=== PATIENT | male | born 1955 | race Caucasian/White ===

== ENCOUNTER 2022-01-26 00:25 | Day surgery (SDC) | payer MEDICARE, SELFPAY ==
[2022-01-12 15:03] VITALS: BMI 33.0
[2022-01-26 07:44] VITALS: BP 146/98; PULSE 77; RESP 20; TEMP 36.4; O2SAT 96; BMI 34.0
[2022-01-26] MEDS: GENTAMICIN 80MG/SOD CHL 50 ML 80 MG/50 ML BAG 100 MG IVPB (07:50)
[2022-01-26] MEDS: LACTATED RINGERS 1,000 ML 150 ML IV CONT (08:07)
[2022-01-26] MEDS: AMPICILLIN 2 GM/NS 100 ML 2 GM/100 ML BAG IVPB (08:32)
--- NOTE | 2022-01-26 08:48 | WPDANESEPPF ---
Anes - Initial Pre Proc Eval Procedure: Operation Date: 01/26/22 09:00 Proposed Procedures p Screening Colonoscopy - Keenan Barraza MD Date/Time: 01/26/22 08:48 Surgeon: Keenan Barraza MD Pre Op Diagnosis: hx of colon polyps Patient Data Age: 66 Gender: M Height: 1.7 m Weight: 98.4 kg Last Vital Signs Temp 97.5 F L 01/26/22 07:44 Pulse 77 01/26/22 07:44 Resp 20 01/26/22 07:44 BP 146/98 H 01/26/22 07:44 Pulse Ox 96 01/26/22 07:44 O2 Del Method Room Air 01/26/22 07:44 Allergies Allergy/AdvReac Type Severity Reaction Status Date / Time No Known Allergies Allergy Unknown Verified 01/26/22 07:43 Home Medications Medication Instructions Recorded Confirmed Type aspirin 325 mg tablet 325 mg PO DAILY 03/26/20 01/26/22 History diazepam 5 mg tablet 5 mg PO BID PRN Anxiety 03/26/20 01/26/22 History albuterol sulfate 90 mcg/actuation 1 puff inhalation Q4H PRN 09/11/21 01/26/22 Rx aerosol inhaler (ProAir HFA) shortness of breath or wheezing #1 device atorvastatin 80 mg tablet 80 mg PO DAILY #30 tabs 10/02/21 01/26/22 Rx famotidine 40 mg tablet 40 mg PO DAILY #90 tabs 11/23/21 01/26/22 Rx fluticasone 250 mcg-salmeterol 50 1 inh inhalation BID #60 ea 11/23/21 01/26/22 Rx mcg/dose blistr powdr for inhalation (Wixela Inhub) peg 3350-electrolytes 236 240 ml PO Q10M #4,000 mL 12/10/21 Rx gram-22.74 gram-6.74 gram-5.86 gram solution (Golytely) Patient hx anesthesia problems: none Family hx anesthesia problems: none Results Review: All pre-operative results and documents have been reviewed as part of the pre-operative evaluation. [facility] [place] Past Medical History Medical History (Updated 11/24/21 @ 13:44 by Abby Wu MD) Alcohol use disorder, mild, abuse Anxiety COPD (chronic obstructive pulmonary disease) Coronary artery disease Gastroesophageal reflux Idiopathic agranulocytosis Marijuana smoker, continuous Mixed hyperlipidemia Prediabetes Tobacco abuse Surgical History Surgical History (Updated 11/23/21 @ 21:59 by Abby Wu MD) History of aortic valve replacement with bioprosthetic valve History of mitral valve replacement with bioprosthetic valve Social History Social History Smoking packs per day: 1 Smoking cigarettes per day: 20.0 Years smoked: 50 Smoking pack-years: 50.00 Smoking status: Current every day smoker Tobacco type: cigarettes Alcohol intake: current Drinks per week: 28 Substance use: current Substance use type: marijuana Other substance usage details: daily Living arrangements: alone Spiritual care concerns: No Anes - Eval Final PreProcedure Day of Procedure 01/26/22 08:48 Patient weight: obese Heart: regular rate and rhythm Lungs: clear to auscultation Airway: Mallampati scale class II Neurological: alert and oriented Last oral intake: >/= 8 hours ASA classification: III Emergent: no Anesthetic plan: proceed Anesthesia type and monitoring: general GIVS and standard monitoring Results Review: All pre-operative results and documents have been reviewed as part of the pre-operative evaluation. Informed Consent: The patient's anesthetic plan and its attendant risks and benefits were discussed with the patient/family/POA. Questions were solicited and answers provided to the satisfaction of the patient/family/POA.
--- NOTE | 2022-01-26 08:50 | PM.IMHP ---
H&P: HPI History of Present Illness Date/Time: 01/26/22 08:50 Chief Complaint: History of colon polyps. Narrative: This is a 66-year-old white male patient presents for screening colonoscopy. Patient has a history of adenomatous colon polyp removed from the colon 2013. Patient's current weight appetite and bowel movements are normal. Patient denies abdominal pain. He has had no bleeding. Family history is noncontributory. He presents today for follow-up colonoscopy. Review of Systems Review of Systems: Review of systems noncontributory. [facility] Past Medical History Medical History (Updated 01/26/22 @ 08:51 by Keenan Barraza MD) Alcohol use disorder, mild, abuse Anxiety COPD (chronic obstructive pulmonary disease) Coronary artery disease Gastroesophageal reflux Idiopathic agranulocytosis Marijuana smoker, continuous Mixed hyperlipidemia Prediabetes Tobacco abuse Surgical History Surgical History (Updated 11/23/21 @ 21:59 by Abby Wu MD) History of aortic valve replacement with bioprosthetic valve History of mitral valve replacement with bioprosthetic valve Social History Social History Smoking packs per day: 1 Smoking cigarettes per day: 20.0 Years smoked: 50 Smoking pack-years: 50.00 Smoking status: Current every day smoker Tobacco type: cigarettes Alcohol intake: current Drinks per week: 28 Substance use: current Substance use type: marijuana Other substance usage details: daily Living arrangements: alone Spiritual care concerns: No Meds Home Medications and Allergies Home Medications Medication Instructions Recorded Confirmed Type aspirin 325 mg tablet 325 mg PO DAILY 03/26/20 01/26/22 History diazepam 5 mg tablet 5 mg PO BID PRN Anxiety 03/26/20 01/26/22 History albuterol sulfate 90 mcg/actuation 1 puff inhalation Q4H PRN 09/11/21 01/26/22 Rx aerosol inhaler (ProAir HFA) shortness of breath or wheezing #1 device atorvastatin 80 mg tablet 80 mg PO DAILY #30 tabs 10/02/21 01/26/22 Rx famotidine 40 mg tablet 40 mg PO DAILY #90 tabs 11/23/21 01/26/22 Rx fluticasone 250 mcg-salmeterol 50 1 inh inhalation BID #60 ea 11/23/21 01/26/22 Rx mcg/dose blistr powdr for inhalation (Wixela Inhub) peg 3350-electrolytes 236 240 ml PO Q10M #4,000 mL 12/10/21 Rx gram-22.74 gram-6.74 gram-5.86 gram solution (Golytely) Allergies Allergy/AdvReac Type Severity Reaction Status Date / Time No Known Allergies Allergy Unknown Verified 01/26/22 07:43 Vital Signs Vital Signs - 24 hr 01/26/22 07:44 Temperature 97.5 F L Pulse Rate 77 Respiratory Rate 20 Blood Pressure 146/98 H Pulse Oximetry 96 Oxygen Delivery Room Air Exam Narrative: Physical exam reveals patient to be alert. Vital signs stable. HEENT exam is unremarkable. Patient is anicteric. Lungs are clear to auscultation and percussion. Heart is without murmur or extra sounds. Abdominal exam bowel sounds are present soft nontender with no organomegaly. Digital external rectal exam is normal. Assessment and Plan Assessment and plan (1) History of colon polyps: Code(s): Z86.010 - Personal history of colonic polyps Status: Acute Assessment and Plan: Patient has a prior history of adenomatous colon polyp. Plan is for screening colonoscopy at this time. Further recommendations will be given after endoscopy.
[2022-01-26] MEDS: SIMETHICONE ORAL SUSPENSION 20 MG/0.3 ML 30 ML BOTTLE 0.6 ML IRRIGATION (09:39)
[2022-01-26 10:07] VITALS: BP 148/89; PULSE 72; RESP 24; O2SAT 96
[2022-01-26 10:17] VITALS: BP 136/89; PULSE 76; RESP 22; O2SAT 100
[2022-01-26 10:27] VITALS: BP 112/76; PULSE 72; RESP 18; O2SAT 100
== END 2022-01-26 10:29 | disposition home or self-care (01) ==
PROVIDERS: PCP Family Medicine; Visit Provider Internal Medicine Gastroenterology
PROC: 0DJD8ZZ Inspection of Lower Intestinal Tract, Via Natural or Artificial Opening Endoscopic (ICD-10-PCS; CPT 45378; principal; 2022-01-26 09:00)
DX: Z12.11 Encounter for screening for malignant neoplasm of colon (principal); D12.2 Benign neoplasm of ascending colon; K63.5 Polyp of colon; K64.8 Other hemorrhoids; K57.30 Diverticulosis of large intestine without perforation or abscess without bleeding; F41.9 Anxiety disorder, unspecified; J44.9 Chronic obstructive pulmonary disease, unspecified; I25.10 Atherosclerotic heart disease of native coronary artery without angina pectoris; R73.03 Prediabetes; K21.9 Gastro-esophageal reflux disease without esophagitis; E78.2 Mixed hyperlipidemia; D70.8 Other neutropenia; Z95.2 Presence of prosthetic heart valve; F12.90 Cannabis use, unspecified, uncomplicated
CPT/HCPCS: 45385; 88305; J0290; J1580; J2704; J7120

== ENCOUNTER 2023-05-02 14:33 | Outpatient (CLI) | payer MEDICARE, SELFPAY ==
--- NOTE | ~2023-05-02 | CT_ITS ---
EXAMINATION:CT lung screening DATE: 05/02/2023 14:51 INDICATION: Tobacco use. Current smoker with 50 pack year history. TECHNIQUE: Computed tomography (CT) of the chest was performed without intravenous contrast. Automate d exposure control and iterative reconstruction technique were employed. The dose-length product (DLP ) was 211.29 mGy-cm. COMPARISON: None. FINDINGS: There is mild scarring at the lung apices. There are two 4 mm nodules in right upper lobe. There is moderate emphysema. No pleural effusion. The heart size is normal. There are coronary artery calcifications. There are changes of aortic valve replacement and coronary artery bypass grafting. T here is ectasia of ascending aorta measuring 4.9 cm. There is moderate thoracic spondylosis. IMPRESSION: 1. Lung-RADS category 2: Benign appearance or behavior. Continue annual screening with noncontrast lo w-dose chest CT in 12 months. Reviewed, dictated and finalized at location E. [employer] IMPRESSION: 1. Lung-RADS category 2: Benign appearance or behavior. Continue annual screeni ng with noncontrast low-dose chest CT in 12 months.
== END 2023-05-02 14:34 | disposition home or self-care (01) ==
PROVIDERS: PCP Family Medicine; Visit Provider Family Medicine
DX: F17.210 Nicotine dependence, cigarettes, uncomplicated (principal)
CPT/HCPCS: 71271

== ENCOUNTER 2024-03-12 01:35 | Day surgery (SDC) | payer MEDICARE, SELFPAY ==
[2024-02-21 09:32] VITALS: BMI 31.4
[2024-03-12 10:00] VITALS: BP 140/89; PULSE 66; RESP 20; TEMP 36.2; O2SAT 96
[2024-03-12] MEDS: LACTATED RINGERS 1,000 ML 150 ML IV CONT (10:27)
--- NOTE | 2024-03-12 10:29 | WPDANESEPPF ---
Anes - Initial Pre Proc Eval Procedure: Operation Date: 03/12/24 10:30 Proposed Procedures p Screening Colonoscopy - Gera Dallas MD Date/Time: 03/12/24 10:29 Surgeon: Gera Dallas MD Pre Op Diagnosis: hx colon polyps Patient Data Age: 68 Gender: M Height: 1.7 m Weight: 92.9 kg Last Vital Signs Temp 36.2 C L 03/12/24 10:00 Pulse 66 03/12/24 10:00 Resp 20 03/12/24 10:00 BP 140/89 03/12/24 10:00 Pulse Ox 96 03/12/24 10:00 O2 Del Method Room Air 03/12/24 10:00 Allergies Allergy/AdvReac Type Severity Reaction Status Date / Time No Known Allergies Allergy Unknown Verified 03/12/24 10:08 Home Medications Medication Instructions Recorded Confirmed Type aspirin 325 mg tablet 325 mg PO DAILY 03/26/20 03/12/24 History fluticasone 500 mcg-salmeterol 50 1 inh inhalation Q12H #60 ea 06/15/22 03/12/24 Rx mcg/dose blistr powdr for inhalation (Wixela Inhub) fluticasone propionate 50 1 - 2 spray intranasal BID #16 mL 07/05/22 03/12/24 Rx mcg/actuation nasal spray,suspension (Flonase Allergy Relief) omeprazole 20 mg capsule,delayed 20 mg PO BID 07/21/22 03/12/24 History release azelastine 137 mcg (0.1 %) nasal 1 spray intranasal Q12H #30 mL 08/25/22 03/12/24 Rx spray sildenafil (pulm.hypertension) 20 60 mg PO DAILY #60 tabs 12/15/22 03/12/24 Rx mg tablet atorvastatin 80 mg tablet 80 mg PO DAILY #90 tabs 05/31/23 03/12/24 Rx metformin 500 mg tablet 500 mg PO BID #180 tabs 07/27/23 03/12/24 Rx albuterol sulfate 90 mcg/actuation 1 puff inhalation Q4H PRN 08/19/23 03/12/24 Rx aerosol inhaler (ProAir HFA) shortness of breath or wheezing #1 device amlodipine 5 mg tablet 5 mg PO DAILY 02/21/24 03/12/24 History Patient hx anesthesia problems: none Family hx anesthesia problems: none Results Review: All pre-operative results and documents have been reviewed as part of the pre-operative evaluation. [facility] Past Medical History Medical History Alcohol use disorder, mild, abuse Anxiety COPD (chronic obstructive pulmonary disease) Coronary artery disease Erectile dysfunction Gastroesophageal reflux Idiopathic agranulocytosis Marijuana smoker, continuous Mixed hyperlipidemia Tobacco abuse Surgical History Surgical History History of aortic valve replacement with bioprosthetic valve History of mitral valve replacement with bioprosthetic valve Social History Social History Smoking packs per day: 1 Smoking cigarettes per day: 20.0 Years smoked: 50 Smoking pack-years: 50.00 Smoking status: Current every day smoker Tobacco type: cigarettes Alcohol intake: current Drinks per week: 20 Alcohol use details: beer Substance use: current Substance use type: marijuana Other substance usage details: daily Lack of Transportation: No Lack of Food: Never True Current Housing: I Have Housing Concerned About Future Housing: No Difficulty Paying Gas/Electric Bills: No Difficulty Paying for Meds: No Currently Unemployed: No Education: High School Diploma/GED Difficulty w/ Childcare or Family Care: No Living arrangements: with family Gender identity (if verbalized by the patient): Male Sexual Orientation (if Verbalized by the Patient): Straight or Heterosexual Spiritual care concerns: No Agree to blood products: Yes Anes - Eval Final PreProcedure Day of Procedure 03/12/24 10:29 Patient weight: obese Heart: regular rate and rhythm Lungs: clear to auscultation Airway: Mallampati scale class II Neurological: alert and oriented Last oral intake: >/= 8 hours ASA classification: IV Emergent: no Anesthesia type and monitoring: general GIVS and standard monitoring Results Review: All pre-operative results and documents have been reviewed as part of the pre-operative evaluation. Informed Consent: The patient's anesthetic plan and its attendant risks and benefits were discussed with the patient/family/POA. Questions were solicited and answers provided to the satisfaction of the patient/family/POA.
[2024-03-12 10:35] LABS: Glucose Point of Care 109 mg/dl (65-105)
--- NOTE | 2024-03-12 11:25 | PM.IMHP ---
H&P: HPI History of Present Illness Date/Time: 03/12/24 11:25 Chief Complaint: History of colonic polyps. Narrative: The patient's last colonoscopy was in 2021, finding multiple adenomas. He is here for surveillance colonoscopy. Review of Systems Review of Systems: All systems reviewed & are unremarkable except as noted in HPI and below PMFSH Past Medical History Medical History Alcohol use disorder, mild, abuse Anxiety COPD (chronic obstructive pulmonary disease) Coronary artery disease Erectile dysfunction Gastroesophageal reflux Idiopathic agranulocytosis Marijuana smoker, continuous Mixed hyperlipidemia Tobacco abuse Surgical History Surgical History History of aortic valve replacement with bioprosthetic valve History of mitral valve replacement with bioprosthetic valve Social History Social History Smoking packs per day: 1 Smoking cigarettes per day: 20.0 Years smoked: 50 Smoking pack-years: 50.00 Smoking status: Current every day smoker Tobacco type: cigarettes Alcohol intake: current Drinks per week: 20 Alcohol use details: beer Substance use: current Substance use type: marijuana Other substance usage details: daily Lack of Transportation: No Lack of Food: Never True Current Housing: I Have Housing Concerned About Future Housing: No Difficulty Paying Gas/Electric Bills: No Difficulty Paying for Meds: No Currently Unemployed: No Education: High School Diploma/GED Difficulty w/ Childcare or Family Care: No Living arrangements: with family Gender identity (if verbalized by the patient): Male Sexual Orientation (if Verbalized by the Patient): Straight or Heterosexual Spiritual care concerns: No Agree to blood products: Yes Meds Home Medications and Allergies Home Medications Medication Instructions Recorded Confirmed Type aspirin 325 mg tablet 325 mg PO DAILY 03/26/20 03/12/24 History fluticasone 500 mcg-salmeterol 50 1 inh inhalation Q12H #60 ea 06/15/22 03/12/24 Rx mcg/dose blistr powdr for inhalation (Wixela Inhub) fluticasone propionate 50 1 - 2 spray intranasal BID #16 mL 07/05/22 03/12/24 Rx mcg/actuation nasal spray,suspension (Flonase Allergy Relief) omeprazole 20 mg capsule,delayed 20 mg PO BID 07/21/22 03/12/24 History release azelastine 137 mcg (0.1 %) nasal 1 spray intranasal Q12H #30 mL 08/25/22 03/12/24 Rx spray sildenafil (pulm.hypertension) 20 60 mg PO DAILY #60 tabs 12/15/22 03/12/24 Rx mg tablet atorvastatin 80 mg tablet 80 mg PO DAILY #90 tabs 05/31/23 03/12/24 Rx metformin 500 mg tablet 500 mg PO BID #180 tabs 07/27/23 03/12/24 Rx albuterol sulfate 90 mcg/actuation 1 puff inhalation Q4H PRN 08/19/23 03/12/24 Rx aerosol inhaler (ProAir HFA) shortness of breath or wheezing #1 device amlodipine 5 mg tablet 5 mg PO DAILY 02/21/24 03/12/24 History Allergies Allergy/AdvReac Type Severity Reaction Status Date / Time No Known Allergies Allergy Unknown Verified 03/12/24 10:08 Vital Signs Vital Signs - 24 hr 03/12/24 10:00 Temperature 97.1 F L Pulse Rate 66 Respiratory Rate 20 Blood Pressure 140/89 Pulse Oximetry 96 Oxygen Delivery Room Air Assessment and Plan Assessment and plan (1) History of colon polyps: Code(s): Z86.010 - Personal history of colon polyps Status: Acute Plan Patient deemed a good candidate for colonoscopy: Will proceed.
[2024-03-12 11:58] VITALS: BP 125/83; PULSE 77; RESP 22; O2SAT 96
--- NOTE | 2024-03-12 12:05 | PM.IMHP ---
H&P: HPI History of Present Illness Date/Time: 03/12/24 12:05 Chief Complaint: Screening colonoscopy. Patient has a history of colonic polyps. Narrative: Last colonoscopy 3 years ago. Review of Systems Review of Systems: All systems reviewed & are unremarkable except as noted in HPI and below PMFSH Past Medical History Medical History Alcohol use disorder, mild, abuse Anxiety COPD (chronic obstructive pulmonary disease) Coronary artery disease Erectile dysfunction Gastroesophageal reflux Idiopathic agranulocytosis Marijuana smoker, continuous Mixed hyperlipidemia Tobacco abuse Surgical History Surgical History History of aortic valve replacement with bioprosthetic valve History of mitral valve replacement with bioprosthetic valve Social History Social History Smoking packs per day: 1 Smoking cigarettes per day: 20.0 Years smoked: 50 Smoking pack-years: 50.00 Smoking status: Current every day smoker Tobacco type: cigarettes Alcohol intake: current Drinks per week: 20 Alcohol use details: beer Substance use: current Substance use type: marijuana Other substance usage details: daily Lack of Transportation: No Lack of Food: Never True Current Housing: I Have Housing Concerned About Future Housing: No Difficulty Paying Gas/Electric Bills: No Difficulty Paying for Meds: No Currently Unemployed: No Education: High School Diploma/GED Difficulty w/ Childcare or Family Care: No Living arrangements: with family Gender identity (if verbalized by the patient): Male Sexual Orientation (if Verbalized by the Patient): Straight or Heterosexual Spiritual care concerns: No Agree to blood products: Yes Meds Home Medications and Allergies Home Medications Medication Instructions Recorded Confirmed Type aspirin 325 mg tablet 325 mg PO DAILY 03/26/20 03/12/24 History fluticasone 500 mcg-salmeterol 50 1 inh inhalation Q12H #60 ea 06/15/22 03/12/24 Rx mcg/dose blistr powdr for inhalation (Wixela Inhub) fluticasone propionate 50 1 - 2 spray intranasal BID #16 mL 07/05/22 03/12/24 Rx mcg/actuation nasal spray,suspension (Flonase Allergy Relief) omeprazole 20 mg capsule,delayed 20 mg PO BID 07/21/22 03/12/24 History release azelastine 137 mcg (0.1 %) nasal 1 spray intranasal Q12H #30 mL 08/25/22 03/12/24 Rx spray sildenafil (pulm.hypertension) 20 60 mg PO DAILY #60 tabs 12/15/22 03/12/24 Rx mg tablet atorvastatin 80 mg tablet 80 mg PO DAILY #90 tabs 05/31/23 03/12/24 Rx metformin 500 mg tablet 500 mg PO BID #180 tabs 07/27/23 03/12/24 Rx albuterol sulfate 90 mcg/actuation 1 puff inhalation Q4H PRN 08/19/23 03/12/24 Rx aerosol inhaler (ProAir HFA) shortness of breath or wheezing #1 device amlodipine 5 mg tablet 5 mg PO DAILY 02/21/24 03/12/24 History Allergies Allergy/AdvReac Type Severity Reaction Status Date / Time No Known Allergies Allergy Unknown Verified 03/12/24 10:08 Vital Signs Vital Signs - 24 hr 03/12/24 10:00 03/12/24 11:58 Temperature 97.1 F L Pulse Rate 66 77 Respiratory Rate 20 22 H Blood Pressure 140/89 125/83 Pulse Oximetry 96 96 Oxygen Delivery Room Air Room Air Assessment and Plan Assessment and plan (1) History of colon polyps: Code(s): Z86.010 - Personal history of colon polyps Status: Acute Plan Patient deemed a good candidate for colonoscopy, we will proceed.
[2024-03-12 12:08] VITALS: BP 128/81; PULSE 72; RESP 21; O2SAT 96
[2024-03-12 12:17] VITALS: BP 147/93; PULSE 70; RESP 24; O2SAT 99
== END 2024-03-12 12:20 | disposition home or self-care (01) ==
PROVIDERS: PCP Family Medicine; Referring Provider Internal Medicine Gastroenterology; Visit Provider Internal Medicine Gastroenterology
PROC: 0DJD8ZZ Inspection of Lower Intestinal Tract, Via Natural or Artificial Opening Endoscopic (ICD-10-PCS; CPT 45378; principal; 2024-03-12 10:30)
DX: Z12.11 Encounter for screening for malignant neoplasm of colon (principal); D12.4 Benign neoplasm of descending colon; D12.5 Benign neoplasm of sigmoid colon; D12.8 Benign neoplasm of rectum; K63.5 Polyp of colon; K57.30 Diverticulosis of large intestine without perforation or abscess without bleeding; J44.9 Chronic obstructive pulmonary disease, unspecified; I25.10 Atherosclerotic heart disease of native coronary artery without angina pectoris; E78.2 Mixed hyperlipidemia; F41.9 Anxiety disorder, unspecified; K21.9 Gastro-esophageal reflux disease without esophagitis; F17.210 Nicotine dependence, cigarettes, uncomplicated; Z95.2 Presence of prosthetic heart valve; F12.90 Cannabis use, unspecified, uncomplicated; E66.9 Obesity, unspecified; Z68.32 Body mass index [BMI] 32.0-32.9, adult; Z79.51 Long term (current) use of inhaled steroids; Z79.84 Long term (current) use of oral hypoglycemic drugs
CPT/HCPCS: 45385; 82948; 88305; J7120

== ENCOUNTER 2024-12-25 09:34 | Outpatient (CLI) | payer MEDICARE, SELFPAY ==
--- NOTE | ~2024-12-25 | CT_ITS ---
CT Scan of the Chest without Contrast: Clinical Indication: Lung cancer screening, nicotine dependence Technique: Contiguous sections were acquired throughout the chest without intravenous contrast. Dose reduction technique was used on this scan by utilizing automated exposure control and iterative recon struction technique. The dose-length product (DLP) was 183.01 mGy-cm. COMPARISON: 05/02/2023 Findings: There is no evidence of any significant mediastinal, hilar or axillary lymphadenopathy. Ascending aor ta measures 5.2 cm in diameter. Probable aortic valve replacement present.. There is no evidence of pleural or pericardial effusion. No pulmonary nodule evident. Stable emphysema and interstitial changes, especially at the lung apices . Images through the upper abdomen reveal no abnormalities. Impression: Lung RADS 2: Benign appearance. 12 month follow-up screening CT advised. 5.2 cm ascending aortic aneurysm. Reviewed, dictated and finalized at [facility]. Impression: Lung RADS 2: Benign appearance. 12 month follow-up screening CT advised. 5.2 cm ascending aortic aneurysm.
--- OUTSIDE RECORDS SUMMARY | 2024-12-25 09:45 | XMS_ITS | Clinical Summary ---
Author Organization [facility] Address [address] [facility] [place] [address] Care Team Providers Care Metal Mine Inspector Name Role Phone Abby Wu MD Primary Care Provider [phone] Allergies No known active allergies Medications aspirin 325 mg tablet Take 1 tablet (325 mg total) by mouth as needed 7 Active omeprazole (PriLOSEC) 20 mg capsule as needed 4 Active atorvastatin (LIPITOR) 40 mg tablet Take 1 tablet (40 mg total) by mouth daily 90 tablet 3 0 Active albuterol HFA (PROVENTIL HFA,VENTOLIN HFA,PROAIR HFA) 90 mcg/actuation inhaler USE 1 PUFF BY MOUTH EVERY 4 HOURS NEEDED FOR SHORTNESS OF BREATH OR WHEEZING 0 Active Breztri Aerosphere 160-9-4.8 mcg/actuation inhaler Inhale 2 puffs 2 (two) times a day 4 Active metFORMIN (GLUCOPHAGE) 500 mg tablet 4 Active lisinopriL (PRINIVIL,ZESTR IL) 10 mg tablet Take 1 tablet (10 mg total) by mouth daily 30 tablet 11 5 10/26/19 26 Active Active Problems Problem Noted Date Diagnosed Date H/O aortic valve replacement 11/09/2024 Assessment & Plan (11/09/2024 11:56 AM CDT): Status post SAVR, 27 mm magna ease in 2013 TTE in 2023, mean gradient 8 mm Hg, no significant AR Echo repeated today, results pending Aneurysm of ascending aorta without rupture 10/28 Assessment & Plan (11/09/2024 11:56 AM CDT): 5.2 cm per CTA chest in September 2024 Overall stable, noted to be 5.3 cm on TTE in 2023 Continue surveillance, discussed with patient importance of blood pressure control, tobacco cessation Essential hypertension 11/09/2024 Assessment & Plan (11/09/2024 11:56 AM CDT): Overall well-controlled, continue lisinopril 10 mg daily Repeat BMP ordered to evaluate kidney function Coronary artery disease invo lving akutan coronary artery of akutan heart without angina pectoris 06/30/2021 Assessment & Plan (11/09/2024 11:56 AM CDT): CABG x1 (BRUCE-LAD) in 2013 Denies anginal symptoms Continue aspirin, statin Tobacco use 06/30/2021 Assessment & Plan (11/09/2024 11:56 AM CDT): Advised complete cessation Obesity 06/30/2021 Hyperlipidemia 12/26/2014 Assessment & Plan (11/09/2024 11:56 AM CDT): LDL of 58 per blood work in 2023 Continue atorvastatin 40 Aortic valve stenosis 03/29/2014 Encounters Date Type Department Care Team Description 11/14/2024 Results Follow-Up [facility] [address] [place] [address] Carlos Bell MD Transthoracic Echo (TTE) Complete W Doppler/CF 11/09/2024 10:30 AM CDT Office Visit [facility] Cardiology [address] [place] [address] Medical Office Building [address] [place] [address] Mindy Barroso NP Coronary artery disease involving akutan coronary artery of akutan heart without angina pectoris (Primary Dx); Essential hypertension; H/O aortic valve replacement; Aneurysm of ascending aorta without rupture; Mixed hyperlipidemia; Tobacco use 11/09/2024 9:30 AM CDT Ancillary Procedure [facility] [address] [place] [address] [address] [place] [address] Nonrheumatic aortic valve stenosis; Coronary artery disease involving akutan heart, unspecified vessel or lesion type, unspecified whether angina present 11/09/2024 Telephone [facility] Cardiology [address] [facility] Advanced Medicine 8th [place] [address] [place] [address] Carlos Bell MD 10/31/2024 Telephone [facility] Cardiology [facility] 8th [place] [address] [place] [address] Carlos Bell MD 10/24/[address] [place] [address] Garo Farley Nitesh 10/24/2024 Orders Only [address] [place] [id number] Carlos Bell MD Nonrheumatic aortic valve stenosis (Primary Dx); Coronary artery disease involving akutan heart, unspecified vessel or lesion type, unspecified whether angina present 10/24/2024 Results Follow-Up [facility] [address] [place] [address] Carlos Bell MD CTA Chest W Contrast 10/23/2024 8:24 AM CDT - 10/23/2024 11:59 PM CDT Hospital Encounter [facility] [address] [place] [address] Nonrheumatic aortic valve stenosis Discharge Disposition: Discharge to home or self care from Last 3 Months Family History Medical History Relation Name Comments Cancer Father Family history of cancer - (Added by TW Conv) Coronary artery disease Father Fami ly history of coronary artery disease - (Added by TW Conv) Heart attack Father Family history of heart attack - (Added by TW Conv) Hypertension Father Family history of hypertension - (Added by TW Conv) Lung disease Father Family history of lung disease - (Added by TW Conv) Relation Name Status Comments Father Social History Tobacco Use Types Packs/Day Years Used Date Smoking Tobacco: Every Day Smokeless Tobacco: Never Tobacco Cessation:Ready to Q uit: Not Asked; Counseling Given: Not Answered Comments:5 cigs daily Alcohol Use Standard Drinks/Week Comments Yes 0 (1 standard drink = 0.6 oz pur e alcohol) Sex and Gender Information Value Date Recorded Sex Assigned at Not on file 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 [employer] Gender Identity Not on file Sexual Orientation Not on file Obstetrics History Last Filed Vital Signs Vital Sign Reading Time Taken Comments Blood Pressure 140/88 11/09/2024 10:36 AM CDT Pulse 78 11/09/2024 10:36 AM CDT Temperature 36.3 C (97.3 F) 06/13/2020 10:27 AM LIBRARY CLERK [employer] Respiratory Rate - - Oxygen Saturation 96% 11/09/2024 10:36 AM CDT Inhaled Oxygen Concentration - - Weight 90 kg (198 lb 6.4 oz) 11/09/2024 10:36 AM CDT Height 170.2 cm (5' 7.01) 11/09/2024 10:36 AM C DT Body Mass Index 31.06 11/09/2024 10:36 AM CDT Plan of Treatment Health Maintenance Due Date Last Done Comments Colon Cancer Screening-Colonoscopy 1955 Depression Screening 1955 Fall Risk Assessment 1955 Hepatitis C Screening 1955 Prostate Cancer Screening-PSA 1955 Hepatitis B Screening 1973 Pneumococcal vaccine 65+ (1 of 2 - PCV) 1974 Zoster Vaccine (1 of 2) 2005 Abdominal Aortic Aneurysm (AAA) Screen 2020 Well Visit 65+ 2020 Influenza Vaccine (#1) 2025 DTaP/Tdap/Td Vaccine (2 - Td or Tdap) 07/13/2027 Procedures Procedure Name Priority Date/Time Associated Diagnosis Comments TRANSTHORACIC ECHO (TTE) COMPLETE W DOPPLER/CF W CONTRAST Routine 11/09/2024 10:19 AM CDT Nonrheumatic aortic valve stenosis Coronary artery disease involving akutan heart, unspecified vessel or lesion type, unspecified whether angina present CTA CHEST W CONTRAST Schedule Routine, Read Routine (OP Routine) 10/23/2024 8:42 AM CDT Nonrheumatic aortic valve stenosis POC ISTAT Routine 10/23/2024 8:36 AM CDT from Last 3 Months Results * TRANSTHORACIC ECHO (TTE) COMPLETE W DOPPLER/CF W CONTRAST (11/09/2024 10:19 AM CDT) EF Mod BP 67 % CONS SCIMAGE Anatomical Region Laterality Modality Ultrasound 11/09/2024 9:37 AM CDT Narrative 11/09/2024 1:59 PM CDT [facility] Cardiac Diagnostic Lab [address] , [address] [place] [address] Transthoracic Echocardiographic Report Patient Name: CHELSIE VIZCARRA D : 1955 (69y 7m) Gender: M Study Date: 11/09/2024 09:37:12 AM Ht(Inch): 67 Wt(Lb): 207.01 BSA: 2.11 Headlight Adjuster: DELANEY Leal Location: [facility] Order Provider: CARLOS BELL Heart Rate: 81 BMI: 32.42 BP: 101 / 65 Ref Provider: CARLOS BELL PROCEDURES: Echocardiographic Report: Transthoracic complete echo with strain imaging and contrast, 2D, spectral and tissue Doppler, color flow Doppler, M-mode. Additional Procedures: Myocardial strain imaging was performed. Contrast: Contrast Enhancement was Employed: After initial imaging due to sub- optimal quality related to co-morbidity defined by patient's body habitus. 0.4 ml Optison Administered, (2.6 ml wasted). INDICATIONS: I35.0 Nonrheumatic aortic (valve) stenosis and I25.10 Atherosclerotic heart disease of akutan coronary artery without angina pectoris. CONCLUSIONS: 1. Normal left ventricular cavity size based on volume index. Normal LV wall thickness. Normal left ventricular systolic function. The Ejection Fraction (Frances's) is measured at 67 %. The average global longitudinal strain is abnormal. 2. Right ventricular dilatation. Normal right ventricular systolic function. 3. s/p TAVR; A bioprosthetic stent-valve is present in the aortic position. ATTESTATION: I have personally reviewed and interpreted this study without fellow or resident. - DISCLAIMER: The study images and the final report will be retained in the patient chart by the Echo Laboratory for the legally required time period. This chart constitutes the legal record of any testing performed. FINDINGS: Left Ventricle: Normal left ventricular cavity size based on volume index. Normal LV wall thickness. Normal left ventricular systolic function. The Ejection Fraction (Frances's) is measured at 67 %. The average global longitudinal strain is abnormal. The LV global strain is: -12.7 %. Right Ventricle: Right ventricular dilatation. Normal right ventricular systolic function. Left Atrium: The left atrium is normal in size. Right Atrium: Right atrial dilatation. Mitral Valve: Normal mitral valve structure. No mitral regurgitation. No stenosis present. Aortic Valve: Mildly thickened aortic valve leaflets. Mildly restricted aortic cusps. The mean transaortic gradient is 9 mmHg. The aortic valve area by the continuity equation (using VTI) is 2.27 cm2. Aortic valve dimensionless index is 0.44. A bioprosthetic stent-valve is present in the aortic position. Tricuspid Valve: Normal tricuspid valve structure. No tricuspid regurgitation. No tricuspid valve stenosis. Pulmonic Valve: Normal pulmonic valve structure. No pulmonic regurgitation. No pulmonic valve stenosis present. Pericardium: Normal pericardium without pericardial effusion. Aorta: Mild aortic root dilation at sinuses of Valsalva. Dilation of the ascending aorta when indexed. PASP: Normal estimated pulmonary artery systolic pressure. Rhythm: Normal Sinus rhythm was seen during the study. MEASUREMENTS: 2D/MM Value Range Doppler Value Range LVIDd 2D 5.15 cm [ 4.20 - 5.80 ] AV Peak Antwan 2.0 m/s [ 1.0 - 1.7 ] LVIDs 2D 3.28 cm [ 2.50 - 4.00 ] AV Peak PG 16.00 mmHg IVSd 2D 0.97 cm [ 0.60 - 1.00 ] AV Mean PG 9 mmHg LVPWd 2D 0.99 cm [ 0.60 - 1.00 ] AV VTI 41.2 cm LV Thickness Ratio 1.0 LVOT Peak Antwan 0.8 m/s [ 0.7 - 1.1 ] LV FS 2D 36.28 % [ 25.00 - 43.00 ] LVOT Peak PG 2.56 mmHg LV Mass 2D 190.37 g LVOT Mean PG 2 mmHg LV Mass Index 2D 90.22 g/m2 LVOT VTI 18.3 cm RWT 0.38 LVOT Diam 2.55 cm EDV Mod BP 123.17 ml [ 62.00 - 150.00 ] NATACHA VTI 2.27 cm2 LV EDV Index 58.37 ml/m2 LVOT/AV VTI 0.44 - Dimensionless index (DVI) ESV Mod BP 41.29 ml [ 21.00 - 61.00 ] MV E Peak Antwan 0.7 m/s [ 0.6 - 1.3 ] EF Mod BP 67 % [ 52 - 72 ] MV A Peak Antwan 0.8 m/s [ 1.0 - 1.2 ] LV GLS -12.7 % [ -25.0 - -18.0 ] MV E/A 0.9 ratio [ 0.8 - 1.5 ] LA Length 4C 4.47 cm MV Decel Time 199.79 msec [ 104.00 - 258.00 ] LA Length 2C 5.22 cm Med E` Antwan 5.5 cm/sec [ 8.0 - 25.0 ] LA Volume BP 64.29 ml Lat E` Antwan 7.2 cm/sec [ 10.0 - 25.0 ] LA Volume Index 30.47 ml/m2 [ 16.00 - 34.00 ] Average E/E` 11.02 RV Base Dimen 2D 5.3 cm [ 2.5 - 4.2 ] RV S` 6.25 cm/sec TAPSE 1.80 cm [ 1.71 - 5.00 ] TR Peak Antwan 2.3 m/s [ 1.0 - 2.8 ] RA Volume 100.91 ml TR Peak PG 21.2 mmHg RA Volume Index 47.82 ml/m2 PV Peak Antwan 0.9 m/s [ 0.4 - 0.8 ] AoR Diam 2D 4.17 cm [ 3.10 - 3.70 ] PV Peak PG 3.24 mmHg Ao Root Index 1.98 cm/m2 [ 1.00 - 2.00 ] Asc Ao Diam 2D 4.69 cm Asc Ao Index 2.22 cm/m2 Electronically Signed By: Stuart Gibbs MD 11/09/2024 1:58:06 PM CDT Procedure Note Stuart Gibbs MD - 11/09/2024 [facility] Cardiac Diagnostic Lab [address] [facility], [address] [place] [address] Transthoracic Echocardiographic Report Patient Name: CHELSIE VIZCARRA D : 1955 (69y 7m) Gender: M Study Date: 11/09/2024 09:37:12 AM Ht(Inch): 67 Wt(Lb): 207.01 BSA: 2.11 Headlight Adjuster: DELANEY Leal Location: [facility] Order Provider:CARLOS BELL Heart Rate: 81 BMI: 32.42 BP: 101 / 65 Ref Provider: CARLOS BELL PROCEDURES: Echocardiographic Report: Transthoracic complete echo with strain imagingand contrast, 2D, spectral and tissue Doppler, color flow Doppler, M-mode. Additional Procedures: Myocardial strain imaging was performed. Contrast: Contrast Enhancement was Employed: After initial imaging due tosub- optimal quality related to co-morbidity defined by patient's body habitus. 0.4 mlOptison Administered, (2.6 ml wasted). INDICATIONS: I35.0 Nonrheumatic aortic (valve) stenosis and I25.10 Atheroscleroticheart disease of akutan coronary artery without angina pectoris. CONCLUSIONS: 1. Normal left ventricular cavity size based on volume index. Normal LVwall thickness. Normal left ventricular systolic function. The Ejection Fraction(Frances's) is measured at 67 %. The average global longitudinal strain is abnormal. 2. Right ventricular dilatation. Normal right ventricular systolicfunction. 3. s/p TAVR; A bioprosthetic stent-valve is present in the aorticposition. ATTESTATION: I have personally reviewed and interpreted this study without fellow orresident. - DISCLAIMER: The study images and the final report will be retained in the patientchart by the Echo Laboratory for the legally required time period. This chart constitutesthe legal record of any testing performed. FINDINGS: Left Ventricle: Normal left ventricular cavity size based on volume index.Normal LV wall thickness. Normal left ventricular systolic function. The EjectionFraction (Frances's) is measured at 67 %. The average global longitudinal strain is abnormal.The LV global strain is: -12.7 %. Right Ventricle: Right ventricular dilatation. Normal right ventricularsystolic function. Left Atrium: The left atrium is normal in size. Right Atrium: Right atrial dilatation. Mitral Valve: Normal mitral valve structure. No mitral regurgitation. Nostenosis present. Aortic Valve: Mildly thickened aortic valve leaflets. Mildly restrictedaortic cusps. The mean transaortic gradient is 9 mmHg. The aortic valve area by thecontinuity equation (using VTI) is 2.27 cm2. Aortic valve dimensionless index is 0.44. Abioprosthetic stent-valve is present in the aortic position. Tricuspid Valve: Normal tricuspid valve structure. No tricuspidregurgitation. No tricuspid valve stenosis. Pulmonic Valve: Normal pulmonic valve structure. No pulmonicregurgitation. No pulmonic valve stenosis present. Pericardium: Normal pericardium without pericardial effusion. Aorta: Mild aortic root dilation at sinuses of Valsalva. Dilation of theascending aorta when indexed. PASP: Normal estimated pulmonary artery systolic pressure. Rhythm: Normal Sinus rhythm was seen during the study. MEASUREMENTS: 2D/MM Value Range DopplerValue Range LVIDd 2D 5.15 cm [ 4.20 - 5.80 ] AV Peak Vel2.0 m/s [ 1.0 - 1.7 ] LVIDs 2D 3.28 cm [ 2.50 - 4.00 ] AV Peak PG16.00 mmHg IVSd 2D 0.97 cm [ 0.60 - 1.00 ] AV Mean PG9 mmHg LVPWd 2D 0.99 cm [ 0.60 - 1.00 ] AV VTI41.2 cm LV Thickness Ratio 1.0 LVOT Peak Vel0.8 m/s [ 0.7 - 1.1 ] LV FS 2D 36.28 % [ 25.00 - 43.00 ] LVOT Peak PG2.56 mmHg LV Mass 2D 190.37 g LVOT Mean PG2 mmHg LV Mass Index 2D 90.22 g/m2 LVOT VTI18.3 cm RWT 0.38 LVOT Diam2.55 cm EDV Mod BP 123.17 ml [ 62.00 - 150.00 ] NATACHA VTI2.27 cm2 LV EDV Index 58.37 ml/m2 LVOT/AV VTI0.44 - Dimensionless index (DVI) ESV Mod BP 41.29 ml [ 21.00 - 61.00 ] MV E Peak Vel0.7 m/s [ 0.6 - 1.3 ] EF Mod BP 67 % [ 52 - 72 ] MV A Peak Vel0.8 m/s [ 1.0 - 1.2 ] LV GLS -12.7 % [ -25.0 - -18.0 ] MV E/A0.9 ratio [ 0.8 - 1.5 ] LA Length 4C 4.47 cm MV Decel Bjoj877.79 msec [ 104.00 - 258.00 ] LA Length 2C 5.22 cm Med E` Vel5.5 cm/sec [ 8.0 - 25.0 ] LA Volume BP 64.29 ml Lat E` Vel7.2 cm/sec [ 10.0 - 25.0 ] LA Volume Index 30.47 ml/m2 [ 16.00 - 34.00 ] Average E/E`11.02 RV Base Dimen 2D 5.3 cm [ 2.5 - 4.2 ] RV S`6.25 cm/sec TAPSE 1.80 cm [ 1.71 - 5.00 ] TR Peak Vel2.3 m/s [ 1.0 - 2.8 ] RA Volume 100.91 ml TR Peak PG21.2 mmHg RA Volume Index 47.82 ml/m2 PV Peak Vel0.9 m/s [ 0.4 - 0.8 ] AoR Diam 2D 4.17 cm [ 3.10 - 3.70 ] PV Peak PG3.24 mmHg Ao Root Index 1.98 cm/m2 [ 1.00 - 2.00 ] Asc Ao Diam 2D4.69 cm Asc Ao Index2.22 cm/m2 Electronically Signed By: Stuart Gibbs MD 11/09/2024 1:58:06 PM CDT Carlos Bell MD CV ECHO PROCEDURES F inal Result * CTA Chest W Contrast (10/23/2024 8:42 AM CDT) Anatomical Region Laterality Modality Chest N/A Computed Tomogra phy 10/23/2024 9:16 AM CDT Impressions 10/23/2024 9:16 AM CDT 1. Stable ascending aortic aneurysm measuring up to 5.2 x 4.8 cm in pulmonary artery bifurcation. 2. 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 3. Mildly enlarged aorticopulmonary 13 mm window lymph node, slightly larger than the prior which time it was 11 mm. This is indeterminate, but still probably benign and reactive given little relative exchange operator one year. This can be followed on the patient's one-year follow-up CT. Electronically signed by: Jamin Medina M.D. Narrative 10/23/2024 9:16 AM CDT Examination: Computed tomography angiography of the chest with intravenous contrast DATE: 10/23/2024. HISTORY: Aortic aneurysm. TECHNIQUE: Computed tomography angiography of the chest was obtained after the uneventful administration of 100 mL of Optiray 350 according to standard protocol. FINDINGS: Comparison is made to 11/25/2023. No supraclavicular or axillary lymphadenopathy. An aorticopulmonary window node at scanner position 83.5 measures just above the upper limits of normal, 13 mm today versus 11 mm on the prior. There is also been interval enlargement in a still normal for size 8 mm in short axis left hilar node that previously measured 5 mm. Other small mediastinal and hilar lymph nodes are unchanged. Heart size is normal. There are dense coronary calcifications. There are changes of coronary artery bypass grafting. There is a background of severe emphysema. No suspicious pulmonary nodules or masses. No pleural effusion or pneumothorax. No consolidation. Max ascending aorta measures 5.2 x 4.8 cm at the level of the pulmonary artery bifurcation, stable since the prior. There is extensive motion at the sinuses of Valsalva which are unchanged, measuring approximately 3.2 x 3.2 x 4.2 cm. Sinotubular junction measures 4.1 x 4.3 cm. Descending aorta measures 3.1 x 2.9 cm. Upper abdomen is notable for moderate 70% atherosclerotic related stenosis in the proximal superior mesenteric artery. This is similar to the prior. Bone windows demonstrate no lytic or blastic lesions. Procedure Note Jamin Medina MD - 10/23/2024 Examination: Computed tomography angiography of the chest with intravenous contrast DATE: 10/23/2024. HISTORY: Aortic aneurysm. TECHNIQUE: Computed tomography angiography of the chest was obtained after the uneventful administration of 100 mL of Optiray 350 according to standard protocol. FINDINGS: Comparison is made to 11/25/2023. No supraclavicular or axillary lymphadenopathy. An aorticopulmonary window node at scanner position 83.5 measures just above the upper limits of normal, 13 mm today versus 11 mm on the prior. There is also been interval enlargement in a still normal for size 8 mm in short axis left hilar node that previously measured 5 mm. Other small mediastinal and hilar lymph nodes are unchanged. Heart size is normal. There are dense coronary calcifications. There are changes of coronary artery bypass grafting. There is a background of severe emphysema. No suspicious pulmonary nodules or masses. No pleural effusion or pneumothorax. No consolidation. Max ascending aorta measures 5.2 x 4.8 cm at the level of the pulmonary artery bifurcation, stable since the prior. There is extensive motion at the sinuses of Valsalva which are unchanged, measuring approximately 3.2 x 3.2 x 4.2 cm. Sinotubular junction measures 4.1 x 4.3 cm. Descending aorta measures 3.1 x 2.9 cm. Upper abdomen is notable for moderate 70% atherosclerotic related stenosis in the proximal superior mesenteric artery. This is similar to the prior. Bone windows demonstrate no lytic or blastic lesions. IMPRESSION: 1. Stable ascending aortic aneurysm measuring up to 5.2 x 4.8 cm in pulmonary artery bifurcation. 2. 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 3. Mildly enlarged aorticopulmonary 13 mm window lymph node, slightly larger than the prior which time it was 11 mm. This is indeterminate, but still probably benign and reactive given little relative exchange operator one year. This can be followed on the patient's one-year follow-up CT. Electronically signed by: Jamin Medina M.D. Carlos Bell MD IMG CT PROCEDURES Fi nal Result * POC ISTAT (10/23/2024 8:36 AM CDT) Creatinine, POC, bld 1.0 0.6 - 1.3 mg/dL POC Device Number [id number] CAITLYN MARTINEZ POC Performer [id number] CAITLYN ODELL Blood 10/23/2024 8:36 AM CDT 10/23/2024 8:36 AM CDT Carlos Bell MD LAB BLOOD ORDERABLES Final Result CAITLYN ESPINOSAWCH [address] [facility] [place] [address] from Last 3 Months Insurance [facility] MEDICARE ADVANTAGE [facility] MEDICARE Address: [address] [place], [place] [id number] [facility] MEDICARE Address: [place] [address] [facility] MEDIC[facility] Address: [address] [place] [address] Care Teams Metal Mine Inspector Relationship Specialty Start Date End Date Abby Wu MD PCP - General 01/30/14
--- OUTSIDE RECORDS SUMMARY | 2024-12-25 09:45 | XMS_ITS | Encounter Summary ---
Author Organization [facility] Healthcare Address [address] [place] [address] Care Team Providers Care Welfare Investigator Name Role Phone Abby Wu MD Primary Care Provider [phone] Encounter Details Date Type Department Care Team ([facility] Contact Info) Description 11/14/2024 Results Follow-Up [facility] and Vascular Center [address] [place] [address] Carlos Jesus MD [address] [address] Transthoracic Echo (TTE) Complete W Doppler/CF Social History Tobacco Use Types Packs/Day Years Used Date Smoking Tobacco: Every Day Smokeless Tobacco: Never Comments:5 cigs daily Alcohol Use Standard Drinks/Week Comments Yes 0 (1 standard drink = 0.6 oz pur e alcohol) Sex and Gender Information Value Date Recorded Sex Assigned at Not on file 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
--- OUTSIDE RECORDS SUMMARY | 2024-12-25 09:45 | XMS_ITS | Encounter Summary ---
Author Organization [facility] Healthcare Address [address] [place] [address] Care Team Providers Care Solar Thermal Technician Name Role Phone Abby Wu MD Primary Care Provider [phone] Encounter Details Date Type Department Care Team ([facility] Contact Info) Description 10/24/2024 Results Follow-Up [facility] Vascular Center [address] [place] [address] Carlos Jesus MD [address] [address] CTA Chest W Contrast Social History Tobacco Use Types Packs/Day Years Used Date Smoking Tobacco: Every Day Smokeless Tobacco: Never Comments:5 cigs daily Alcohol Use Standard Drinks/Week Comments Yes 0 (1 standard drink = 0.6 oz pur e alcohol) Sex and Gender Information Value Date Recorded Sex Assigned at Not on file 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
--- OUTSIDE RECORDS SUMMARY | 2024-12-25 09:45 | XMS_ITS | Referral Summary ---
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 Name Role Phone Abby Wu MD Primary Care Provider [phone] Encounters Date Type Department Care Team Description 11/14/2024 Results Follow-Up [facility] [address] [place] [address] Carlos Bell MD Transthoracic Echo (TTE) Complete W Doppler/CF 11/09/2024 Telephone [facility] [address] [place] [address] 8th [place] [address] [place] [address] Carlos Bell MD 11/09/2024 10:30 AM CDT Office Visit [facility] [address] [place] [address] Medical Office Building [address] [place] [address] Mindy Barroso NP Coronary artery disease involving oneida coronary artery of oneida heart without angina pectoris (Primary Dx); Essential hypertension; H/O aortic valve replacement; Aneurysm of ascending aorta without rupture; Mixed hyperlipidemia; Tobacco use 11/09/2024 9:30 AM CDT Ancillary Procedure [facility] [address] [place] [address] [address] [place] [address] Nonrheumatic aortic valve stenosis; Coronary artery disease involving oneida heart, unspecified vessel or lesion type, unspecified whether angina present 10/31/2024 Telephone [facility] 8th [place] [address] [place] [address] Carlos Bell MD 10/24/2024 Telephone [facility] [address] [facility] Office Building [address] [place] [address] Garo Farley RMA 10/24/2024 Orders Only [facility] [address] [facility] Office Building [address] [place] [address] Carlos Bell MD Nonrheumatic aortic valve stenosis (Primary Dx); Coronary artery disease involving oneida heart, unspecified vessel or lesion type, unspecified whether angina present 10/24/2024 Results Follow-Up [facility] [address] [place] [address] Carlos Bell MD CTA Chest W Contrast 10/23/2024 8:24 AM CDT - 10/23/2024 11:59 PM CDT Hospital Encounter [facility] [address] [place] [address] Nonrheumatic aortic valve stenosis Discharge Disposition: Discharge to home or self care from Last 3 Months Allergies No known active allergies Medications aspirin [...] kidney function Coronary artery disease invo lving oneida coronary artery of oneida heart without angina pectoris 06/30/2021 Assessment & Plan (11/09/2024 11:56 AM CDT): CABG x1 (BRUCE-LAD) in 2013 Denies anginal symptoms Continue aspirin, statin Tobacco use 06/30/2021 Assessment & Plan (11/09/2024 11:56 AM CDT): Advised complete cessation Obesity 06/30/2021 Hyperlipidemia 12/26/2014 Assessment & Plan (11/09/2024 11:56 AM CDT): LDL of 58 per blood work in 2023 Continue atorvastatin 40 Aortic valve stenosis 03/29/2014 Social History Tobacco Use Types Packs/Day Years [...] on file Legal Sex 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 Gender Identity Not on file Sexual Orientation Not on file Last Filed Vital Signs Vital Sign Reading Time Taken Comments Blood Pressure 140/88 11/09/2024 10:36 AM CDT Pulse 78 11/09/2024 10:36 AM CDT Temperature 36.3 C (97.3 F) 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 Respiratory Rate - - Oxygen Saturation 96% 11/09/2024 10:36 AM CDT Inhaled Oxygen Concentration - - Weight 90 kg (198 lb 6.4 oz) 11/09/2024 10:36 AM CDT Height 170.2 cm (5' 7.01) 11/09/2024 10:36 AM C DT Body Mass Index 31.06 11/09/2024 10:36 AM CDT Plan of Treatment Not on file Procedures Procedure Name Priority Date/Time Associated Diagnosis Comments TRANSTHORACIC ECHO (TTE) COMPLETE W DOPPLER/CF W CONTRAST Routine 11/09/2024 10:19 AM CDT Nonrheumatic aortic valve stenosis Coronary artery disease involving oneida heart, unspecified vessel or lesion type, unspecified [...] AM CDT Narrative 11/09/2024 1:59 PM CDT [facility] [address], [address] [place] [address] Transthoracic Echocardiographic Report Patient Name: CHELSIE VIZCARRAWil : 1955 (69y 7m) Gender: M Study Date: 11/09/2024 09:37:12 AM Ht(Inch): 67 Wt(Lb): 207.01 BSA: 2.11 [employer]: DELANEY Leal [facility] Order Provider: CARLOS BELL Heart Rate: 81 [...] stenosis and I25.10 Atherosclerotic heart disease of oneida coronary artery without angina pectoris. CONCLUSIONS: 1. 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 CONCLUSIONS: 1. 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 This can be followed on the patient's one-year follow-up CT. Electronically signed by: Jamin Medina M.D. Carlos Bell MD IMG CT PROCEDURES Fi nal Result * POC ISTAT (10/23/2024 8:36 AM CDT) Creatinine, POC, bld 1.0 0.6 - 1.3 mg/dL POC Device Number [id number] CAITLYN MARTINEZCH POC Performer [id number] CAITLYN ESPINOSAWCH Blood 10/23/2024 8:36 AM CDT 10/23/2024 8:36 AM CDT Carlos Bell MD LAB BLOOD ORDERABLES Final Result CAITLYN ESPINOSAWCH [address] [facility]. Department [place] [address] from Last 3 Months Insurance [facility] MEDICARE ADVANTAGE [facility] MEDICARE ADVANTAGE [facility] MEDICARE ADVANTAGE Care Teams Tubular Products Fabricator Relationship Specialty Start Date End Date Abby Wu MD PCP - General 01/30/14
== END 2024-12-25 09:35 | disposition home or self-care (01) ==
PROVIDERS: PCP Family Medicine; Visit Provider Family Medicine
DX: Z12.2 Encounter for screening for malignant neoplasm of respiratory organs (principal); Z87.891 Personal history of nicotine dependence; I71.40 Abdominal aortic aneurysm, without rupture, unspecified
CPT/HCPCS: 71271